=== PATIENT | male | born 1960 | race Caucasian/White ===

== ENCOUNTER 2023-09-21 16:38 | Inpatient (IN) | payer MEDICARE, OTHER ==
[2023-09-21] VITALS (7 sets, daily range): BP systolic 140–159; BP diastolic 78–97; PULSE 61–71; RESP 3–20; TEMP 97.9
[~2023-09-21] VITALS: Ht 177.8 cm; Wt 88.7 kg
[2023-09-21] MEDS: MIDAZOLAM HCL 2 MG/2 ML VIAL IV ONE (17:09)
[2023-09-21] MEDS: MIDAZOLAM HCL 2 MG/2 ML VIAL ONE (17:09)
[2023-09-21] MEDS ORDERED: AMIODARONE HCL 900 MG in DEXT 5% WATER 500 ML IV ONE (17:15)
[2023-09-21 17:24] LABS: CHLORIDE 106 mEq/L (98-107); SODIUM 141 mEq/L (136-145)
[2023-09-21 17:25] LABS: CALCIUM 9.5 mg/dL (8.7-10.4); CARBON DIOXIDE 22 mEq/L (21-32); HEMATOCRIT. 43.4 % (42.0-52.0); HEMOGLOBIN. 14.7 g/dL (14.0-18.0); MEAN CORPUSCULAR HEMOGLOBIN 30.6 pg (28.0-32.0); MEAN CORPUSCULAR HGB CONC 33.9 g/dL (31.0-37.0); MEAN CORPUSCULAR VOLUME 90.1 fL (80.0-94.0); MEAN PLATELET VOLUME 9.2 fl (7.4-10.4); PLATELET 221 x1000/uL (130-400); RED BLOOD CELL COUNT 4.82 mill/uL (4.7-6.1); RED CELL DISTRIBUTION WIDTH 13.8 % (11.6-14.6); WHITE BLOOD COUNT 2.9 x1000/uL (4.5-11.0)
[2023-09-21 17:26] LABS: DIFFERENTIAL COMMENT 1
[2023-09-21 17:30] LABS: CREATININE 1.7 mg/dL (0.6-1.3); GLUCOSE 191 mg/dL (70-105); UREA NITROGEN BLOOD 10 mg/dL (9-23)
[2023-09-21 17:31] LABS: TROPONIN I HIGH SENSITIVITY 14 ng/L (3.0-53)
[2023-09-21 17:32] LABS: ALANINE AMINOTRANSFERASE 36 IU/L (10-49); ALBUMIN 4.3 g/dL (3.2-4.8); ASPARTATE AMINOTRANSFERASE 52 IU/L (<34); BILIRUBIN DIRECT 0.1 mg/dL (<=3.0); BILIRUBIN TOTAL 0.7 mg/dL (0.1-1.0); PROTEIN TOTAL 7.1 g/dL (6.0-8.3)
[2023-09-21 17:49] LABS: NUCLEATED RED BLOOD CELLS 1 /100 WBC; PLATELET ESTIMATE NORMAL
[2023-09-21 18:46] LABS: INR 0.9; PROTHROMBIN TIME 10.5 sec (9.6-11.0)
[2023-09-21] MEDS: KCL 20MEQ/100ML PREMIX 100 ML IV ONE (19:59)
[2023-09-21 20:14] LABS: TROPONIN I HIGH SENSITIVITY 212 ng/L (3.0-53)
[2023-09-21] MEDS ORDERED: HEPARIN 25,000 UNITS PREMIX 250 ML IV ONE (20:30)
[2023-09-21] MEDS ORDERED: HEPARIN 5000 UNITS/ML VIAL IV ONE (20:30)
[2023-09-21] MEDS: AMIODARONE HCL 900 MG in DEXT 5% WATER 482 ML IV SCH (20:37)
[2023-09-21] MEDS: ASPIRIN 325MG TABLET PO ONE (21:15)
[2023-09-21] MEDS: HEPARIN 60 UNITS/KG BOLUS IV SCH (21:15)
[2023-09-21] MEDS: HEPARIN 25,000 UNITS PREMIX 250 ML IV SCH (22:00)
[2023-09-21 22:02] LABS: TROPONIN I HIGH SENSITIVITY 476 ng/L (3.0-53)
[2023-09-21] MEDS ORDERED: HYDRALAZINE 20MG/ML VIAL IV PRN (23:15)
[2023-09-21] MEDS: MORPHINE SULFATE 2 MG/ML CPJ (NOT FOR IM USE) IV NR (23:29)
[2023-09-22] VITALS (100 sets, daily range): BP systolic 105–176; BP diastolic 45–151; PULSE 46–77; RESP 7–29; TEMP 97.5–98.1
[2023-09-22] MEDS: NITROGLYCERIN 0.1MG/HR PATCH TOP NR (00:11)
[2023-09-22] MEDS ORDERED: POTASSIUM CHLORIDE 20 MEQ in DEXT 5% WATER 90 ML IV ONE (00:45)
[2023-09-22] MEDS: POTASSIUM CHLORIDE 20 MEQ in DEXT 5% WATER 240 ML IV NR (02:06)
[2023-09-22 03:29] LABS: BASOPHILS % 0.6 % (0.0-2.0); EOSINOPHILS % 0.6 % (0.0-5.0); HEMATOCRIT. 42.5 % (42.0-52.0); HEMOGLOBIN. 14.7 g/dL (14.0-18.0); LYMPHOCYTES % 15.9 % (20.0-50.0); MEAN CORPUSCULAR HEMOGLOBIN 30.3 pg (28.0-32.0); MEAN CORPUSCULAR HGB CONC 34.5 g/dL (31.0-37.0); MEAN PLATELET VOLUME 8.6 fl (7.4-10.4); MONOCYTES % 10.5 % (2.0-8.0); NEUTROPHILS % 72.4 % (40.0-76.0); PLATELET 188 x1000/uL (130-400); RED BLOOD CELL COUNT 4.83 mill/uL (4.7-6.1); RED CELL DISTRIBUTION WIDTH 13.7 % (11.6-14.6); WHITE BLOOD COUNT 8.3 x1000/uL (4.5-11.0)
[2023-09-22] MEDS ORDERED: HEPARIN BOLUS PRN aPTT <30 IV (04:00)
[2023-09-22 04:03] LABS: TROPONIN I HIGH SENSITIVITY 497 ng/L (3.0-53)
[2023-09-22 04:37] LABS: CHLORIDE 109 mEq/L (98-107); POTASSIUM 3.7 mEq/L (3.5-5.1); SODIUM 139 mEq/L (136-145)
[2023-09-22 04:38] LABS: CARBON DIOXIDE 23 mEq/L (21-32)
[2023-09-22 04:39] LABS: CALCIUM 9.2 mg/dL (8.7-10.4)
[2023-09-22 04:43] LABS: CREATININE 1.1 mg/dL (0.6-1.3); GLUCOSE 121 mg/dL (70-105); UREA NITROGEN BLOOD 13 mg/dL (9-23)
[2023-09-22] MEDS: HEPARIN BOLUS PRN aPTT 30-44 IV (05:38)
[2023-09-22] MEDS: PANTOPRAZOLE SODIUM 40 MG/VIAL IV SCH (08:39)
[2023-09-22] MEDS ORDERED: LIDOCAINE HCL 1% 10 MG/ML 10ML VIAL ONE (08:45)
[2023-09-22] MEDS: HYDROCODONE/ACETAMINOPHEN 5/325MG TABLET PO NR (10:17)
[2023-09-22] MEDS ORDERED: DEXTROSE 50% WATER 50ML SYRINGE IV PRN (10:45)
[2023-09-22] MEDS: INSULIN LISPRO 100 UNITS/ML SUBCUT SCH (12:00)
[2023-09-22] MEDS: BLOOD SUGAR DIAGNOSTIC STRIP TEST SCH (12:29)
[2023-09-22] MEDS: LIDOCAINE 5% PATCH TOP SCH (13:11)
[2023-09-22] MEDS: TRAMADOL 50MG TABLET PO PRN (14:45)
[2023-09-22] MEDS: ACETAMINOPHEN 650MG/20.3ML UDC PO PRN (19:26)
[2023-09-23] VITALS (46 sets, daily range): BP systolic 109–162; BP diastolic 65–97; PULSE 46–61; RESP 0–29; TEMP 97.7–98.1
[2023-09-23] MEDS: NITROGLYCERIN 0.1MG/HR PATCH TOP SCH (00:05)
[2023-09-23 04:16] LABS: *AMPHETAMINES SCREEN URINE NEGATIVE (NEGATIVE); *BARBITURATES SCREEN URINE NEGATIVE (NEGATIVE); *BENZODIAZEPINES SCREEN URINE PRESUMPTIVE POSITIVE (NEGATIVE); *COCAINE SCREEN URINE NEGATIVE (NEGATIVE); CANNABINOID URINE SCREEN NEGATIVE (NEGATIVE); ECSTASY MDMA SCREEN URINE NEGATIVE (NEGATIVE); METHADONE URINE SCREEN NEGATIVE (NEGATIVE); OPIATES URINE SCREEN PRESUMPTIVE POSITIVE (NEGATIVE); PHENCYCLIDINE URINE SCREEN NEGATIVE (NEGATIVE)
[2023-09-23 04:25] LABS: CLARITY URINE CLEAR (CLEAR); COLOR URINE YELLOW (YELLOW); GLUCOSE URINE NEGATIVE (NEGATIVE); KETONES URINE NEGATIVE (NEGATIVE); LEUKOCYTE ESTERASE URINE NEGATIVE (NEGATIVE); NITRITE URINE NEGATIVE (NEGATIVE); OCCULT BLOOD URINE NEGATIVE (NEGATIVE); PH URINE 5.5 (4.5-8.0); PROTEIN URINE TRACE (NEGATIVE); SPECIFIC GRAVITY URINE 1.022 (1.005-1.030)
[2023-09-23 04:46] LABS: BACTERIA URINE NONE SEEN; RBC URINE 0-2 /hpf (0-2); SQUAMOUS EPITHELIAL CELL URINE NONE SEEN /lpf (RARE/1+); WBC URINE 0-2 /hpf (0-2)
[2023-09-23 05:38] LABS: CHLORIDE 108 mEq/L (98-107); POTASSIUM 3.8 mEq/L (3.5-5.1); SODIUM 139 mEq/L (136-145)
[2023-09-23 05:40] LABS: CALCIUM 9.2 mg/dL (8.7-10.4); CARBON DIOXIDE 26 mEq/L (21-32)
[2023-09-23 05:45] LABS: CREATININE 1.2 mg/dL (0.6-1.3); GLUCOSE 132 mg/dL (70-105); UREA NITROGEN BLOOD 12 mg/dL (9-23)
[2023-09-23 05:46] LABS: BASOPHILS % 0.5 % (0.0-2.0); EOSINOPHILS % 2.1 % (0.0-5.0); HEMOGLOBIN. 13.7 g/dL (14.0-18.0); MEAN CORPUSCULAR HEMOGLOBIN 30.3 pg (28.0-32.0); MEAN CORPUSCULAR HGB CONC 33.4 g/dL (31.0-37.0); MEAN CORPUSCULAR VOLUME 90.6 fL (80.0-94.0); MEAN PLATELET VOLUME 9.2 fl (7.4-10.4); MONOCYTES % 14.9 % (2.0-8.0); NEUTROPHILS % 52.5 % (40.0-76.0); PLATELET 177 x1000/uL (130-400); RED BLOOD CELL COUNT 4.52 mill/uL (4.7-6.1); RED CELL DISTRIBUTION WIDTH 14.1 % (11.6-14.6); WHITE BLOOD COUNT 4.4 x1000/uL (4.5-11.0)
[2023-09-23] MEDS ORDERED: NALOXONE HCL 0.4MG/ML VIAL IV PRN (08:30)
[2023-09-23] MEDS ORDERED: MIDAZOLAM HCL 2 MG/2 ML VIAL ONE (10:05)
[2023-09-23] MEDS ORDERED: FENTANYL CITRATE/PF 50MCG/ML 2ML VIAL ONE (10:05)
[2023-09-23] MEDS ORDERED: HEPARIN 1000 UNITS/ML 10ML ONE (10:05)
[2023-09-23] MEDS ORDERED: DIPHENHYDRAMINE 50MG/ML VIAL ONE (10:05)
[2023-09-23] MEDS ORDERED: LIDOCAINE HCL/PF 1% 10 MG/ML 5ML VIAL ONE (10:05)
[2023-09-23] MEDS: SODIUM CHLORIDE 0.45% 500 ML IV SCH (11:45)
[2023-09-23] MEDS ORDERED: ACETAMINOPHEN 325MG TABLET PO PRN (11:45)
[2023-09-23] MEDS ORDERED: ATROPINE SULFATE 1MG/10ML SYR IV PRN (11:45)
[2023-09-23] MEDS: TAMSULOSIN HCL 0.4MG SR CAPSULE PO SCH (16:55)
[2023-09-24] VITALS (9 sets, daily range): BP systolic 116–149; BP diastolic 75–101; PULSE 58–79; RESP 10–18; TEMP 97.7–98.3; O2SAT 99
[2023-09-24 07:41] LABS: CHLORIDE 104 mEq/L (98-107); SODIUM 136 mEq/L (136-145)
[2023-09-24 07:42] LABS: CALCIUM 9.7 mg/dL (8.7-10.4); CARBON DIOXIDE 27 mEq/L (21-32)
[2023-09-24 07:47] LABS: CREATININE 1.2 mg/dL (0.6-1.3); GLUCOSE 129 mg/dL (70-105); UREA NITROGEN BLOOD 12 mg/dL (9-23)
[2023-09-24 07:51] LABS: BASOPHILS % 0.2 % (0.0-2.0); DIFFERENTIAL COMMENT 0; EOSINOPHILS % 2.3 % (0.0-5.0); HEMATOCRIT. 41.9 % (42.0-52.0); HEMOGLOBIN. 14.1 g/dL (14.0-18.0); LYMPHOCYTES % 17.8 % (20.0-50.0); MEAN CORPUSCULAR HEMOGLOBIN 29.9 pg (28.0-32.0); MEAN CORPUSCULAR HGB CONC 33.6 g/dL (31.0-37.0); MEAN CORPUSCULAR VOLUME 89.2 fL (80.0-94.0); MEAN PLATELET VOLUME 9.5 fl (7.4-10.4); MONOCYTES % 13.3 % (2.0-8.0); NEUTROPHILS % 66.4 % (40.0-76.0); PLATELET 166 x1000/uL (130-400); WHITE BLOOD COUNT 5.4 x1000/uL (4.5-11.0)
[2023-09-24] MEDS: CLOPIDOGREL 75MG TABLET PO SCH (08:52)
[2023-09-24] MEDS: ASPIRIN 81MG TABLET PO SCH (08:57)
[2023-09-24] MEDS ORDERED: ASPIRIN 325MG TABLET PO SCH (09:00)
[2023-09-24] MEDS ORDERED: CLOP75TA33 PO (11:51)
[2023-09-24] MEDS ORDERED: ASPI-1497 PO (11:51)
[2023-09-24] MEDS: POLYETHYLENE GLYCOL 3350 (17GM) 1 DOSE PACK PO NR (17:40)
[2023-09-24] MEDS: LACTULOSE 20G/30ML UDC PO NR (17:40)
[2023-09-25] VITALS: BP 133/81; PULSE 62; RESP 21; TEMP 98.4
[2023-09-25 04:00] VITALS: BP 101/79; PULSE 72; RESP 22; TEMP 98.6
[2023-09-25 08:00] VITALS: BP 132/92; PULSE 82; RESP 18; TEMP 98
[2023-09-25] MEDS: POLYETHYLENE GLYCOL 3350 (17GM) 1 DOSE PACK PO SCH (09:55)
[2023-09-25] MEDS: FAMOTIDINE 20MG/2ML VIAL IV SCH (10:08)
[2023-09-25 12:00] VITALS: BP 118/78; PULSE 63; RESP 17; TEMP 98.1
[2023-09-25 14:24] VITALS: BP 118/78; PULSE 63; TEMP 98.1; O2SAT 96
== END 2023-09-25 16:00 | disposition home or self-care (01) | DRG 321 ==
LOC: ER 16:38 → EDBEDREQ 20:28 → EDBEDREQTM 20:28 → MICUNO 22:54 → 3WST 09-23 11:25
PROVIDERS: ADMIT Internal Medicine; ATTEND Internal Medicine
PROC: 027035Z Dilation of Coronary Artery, One Artery with Two Drug-eluting Intraluminal Devices, Percutaneous Approach (ICD-10-PCS; principal; 2023-09-23)
PROC: 4A023N7 Measurement of Cardiac Sampling and Pressure, Left Heart, Percutaneous Approach (ICD-10-PCS; 2023-09-23)
PROC: B211YZZ Fluoroscopy of Multiple Coronary Arteries using Other Contrast (ICD-10-PCS; 2023-09-23)
DX: I21.4 Non-ST elevation (NSTEMI) myocardial infarction (principal); I46.2 Cardiac arrest due to underlying cardiac condition; I49.01 Ventricular fibrillation; I50.21 Acute systolic (congestive) heart failure; N17.9 Acute kidney failure, unspecified; I47.20 Ventricular tachycardia, unspecified; I11.0 Hypertensive heart disease with heart failure; E11.9 Type 2 diabetes mellitus without complications; I25.10 Atherosclerotic heart disease of native coronary artery without angina pectoris; Z20.822 Contact with and (suspected) exposure to COVID-19; N40.0 Benign prostatic hyperplasia without lower urinary tract symptoms; I49.3 Ventricular premature depolarization; I48.91 Unspecified atrial fibrillation; Z92.21 Personal history of antineoplastic chemotherapy; Z85.038 Personal history of other malignant neoplasm of large intestine
CPT/HCPCS: 36415; 36573; 71045; 80048; 80076; 80305; 81003; 82962; 83036; 83880; 84443; 84484; 85025; 86850; 86900; 87340; 87426; 92928; 93306; 93458; 93970; 99291; C1725; C1769; C1874; C1887; C1893; C9113; J0282; J1200; J1644; J2250; J2270; J3010; J3480; J3490; J7060